=== PATIENT | female | born 1990 | race Caucasian/White ===

== ENCOUNTER 2022-07-31 17:58 | Emergency (ER) | payer OTHER ==
[2022-07-31 18:09] VITALS: BP 138/77; PULSE 84; RESP 16; TEMP 97.7; BMI 34.3
[2022-07-31] MEDS ORDERED: IBUPROFEN 600 MG TABLET (FP) PO ONE (18:33)
== END 2022-07-31 19:18 | disposition home or self-care (01) ==
LOC: JER 17:58
DX: G56.32 Lesion of radial nerve, left upper limb (principal)
CPT/HCPCS: 82962; 99283-25

== ENCOUNTER 2022-09-08 08:54 | Emergency (ER) | payer OTHER ==
[2022-09-08 08:58] VITALS: BP 124/79; PULSE 86; RESP 18; TEMP 97.7; BMI 35.2
== END 2022-09-08 09:48 | disposition home or self-care (01) ==
LOC: JERFT 08:54
DX: J00 Acute nasopharyngitis [common cold] (principal); R05.1 Acute cough; R09.81 Nasal congestion; Z20.822 Contact with and (suspected) exposure to COVID-19
CPT/HCPCS: 0241U-QW; 87651; 99283-25

== ENCOUNTER 2023-05-14 11:08 | Emergency (ER) | payer OTHER ==
[2023-05-14 11:44] VITALS: BP 124/70; PULSE 97; RESP 20; TEMP 97.7; BMI 35.2
[2023-05-14 12:30] LABS: THROAT:GRP A STREP NOT DETECTED (NOTDETECTED)
[2023-05-14] MEDS ORDERED: IBUPROFEN 600 MG TABLET (FP) PO ONE ×2 (12:30→12:31)
[2023-05-14] MEDS ORDERED: ALBUTEROL SO4 2.5/IPRATROPIUM 0.5 INH SOL 3 ML VIAL.NEB. NEB ONE ×2 (12:30→12:31)
== END 2023-05-14 13:22 | disposition home or self-care (01) ==
LOC: JERFT 11:08
PROC: 3E0F7GC Introduction of Other Therapeutic Substance into Respiratory Tract, Via Natural or Artificial Opening (ICD-10-PCS; principal; 2023-05-14)
DX: R05.9 Cough, unspecified (principal); R09.81 Nasal congestion; R06.02 Shortness of breath; J10.1 Influenza due to other identified influenza virus with other respiratory manifestations; Z20.822 Contact with and (suspected) exposure to COVID-19
CPT/HCPCS: 0241U-QW; 87651; 99284-25

== ENCOUNTER 2023-06-10 10:14 | Emergency (ER) | payer OTHER ==
[2023-06-10 10:23] VITALS: BP 110/55; PULSE 89; RESP 16; TEMP 99; BMI 37.8
[2023-06-10] MEDS ORDERED: ACETAMINOPHEN 325 MG TABLET (FP) ONE (10:55)
[2023-06-10] MEDS ORDERED: AMOX TR/POT CLAV 500MG/125MG TABLETS (FP) ONE (10:56)
[2023-06-10] MEDS: AMOXICILLIN 500 MG CAPSULE (FP) PO ONE (11:04)
[2023-06-10] MEDS: ACETAMINOPHEN 325 MG TABLET (FP) PO ONE (11:04)
[2023-06-10] MEDS ORDERED: IBUPROFEN 400 MG TABLET (FP) PO ONE (11:06)
[2023-06-10] MEDS: IBUPROFEN 400 MG TABLET (FP) PO ONE (11:07)
== END 2023-06-10 11:09 | disposition home or self-care (01) ==
LOC: FER 10:14
DX: R22.0 Localized swelling, mass and lump, head (principal); R51.9 Headache, unspecified; R68.84 Jaw pain; K08.89 Other specified disorders of teeth and supporting structures; H92.01 Otalgia, right ear
CPT/HCPCS: 99283-25

== ENCOUNTER 2023-10-06 13:18 | Emergency (ER) | payer SELFPAY ==
[2023-10-06 13:27] VITALS: BP 128/77; PULSE 72; RESP 18; TEMP 97.8; BMI 36.3
[2023-10-06] MEDS ORDERED: FAMOTIDINE 20 MG/50 ML IVPB 20 MG/50 ML MG IVPB ONE (14:01)
[2023-10-06] MEDS ORDERED: ONDANSETRON 4 MG/2 ML VIAL ONE (14:01)
[2023-10-06] MEDS: SODIUM CHLORIDE 0.9% 500 ML INFUS.BAG IV ONE ×2 (14:05→17:52)
[2023-10-06] MEDS: ONDANSETRON 4 MG/2 ML VIAL IVPUSH ONE (14:05)
[2023-10-06] MEDS: FAMOTIDINE 20 MG/50 ML IVPB 20 MG/50 ML MG IVPB ONE (14:05)
[2023-10-06] MEDS ORDERED: KETOROLAC TROMETHAMINE 30 MG/1 ML VIAL ONE (14:11)
[2023-10-06] MEDS: KETOROLAC TROMETHAMINE 30 MG/1 ML VIAL IVPUSH ONE (14:16)
[2023-10-06 14:22] LABS: BASO % 0.5 % (0-2.0); EOS % 0.2 % (0-4.5); HEMATOCRIT 42.4 % (32.4-45.2); HEMOGLOBIN 13.3 GM/dL (10.7-15.3); MCH 27.7 pg (25.7-33.7); MCHC 31.5 g/dl (32.0-36.0); MEAN CELL VOLUME 87.9 fl (80-96); MEAN PLT VOLUME 8.8 fl (7.5-11.1); MONO % 6.2 % (3.8-10.2); NEUT % 82.1 % (42.8-82.8); PLATELET COUNT 295 10^3/uL (134-434); RBC 4.82 M/mm3 (3.60-5.2); RDW 14.7 % (11.6-15.6); WHITE BLOOD COUNT 11.1 K/mm3 (4.0-10.0)
[2023-10-06 14:31] LABS: POTASSIUM 4.6 mmol/L (3.5-5.1)
[2023-10-06 14:33] LABS: CALCIUM 9.3 mg/dL (8.5-10.1)
[2023-10-06 14:34] LABS: ALBUMIN 3.5 g/dl (3.4-5.0)
[2023-10-06 14:37] LABS: CREATININE 0.6 mg/dL (0.55-1.3)
[2023-10-06 14:39] LABS: BILIRUBIN,TOTAL 0.4 mg/dL (0.2-1); TOT PROT 7.3 g/dl (6.4-8.2)
[2023-10-06] MEDS ORDERED: MORPHINE SULFATE 2 MG/ML SYRINGE ONE (14:54)
[2023-10-06] MEDS ORDERED: DICYCLOMINE HCL 10 MG CAPSULE ONE (14:55)
[2023-10-06] MEDS: DICYCLOMINE HCL 20 MG TABLET PO ONE (15:00)
[2023-10-06] MEDS: morphine CARPU-JECT 2 MG/1 ML DISP.SYRIN IVPUSH ONE (15:00)
[2023-10-06 17:51] LABS: EPI CELLS 21 /uL (0-25.1); HYALINE CASTS 15 /uL (0-3.1); PH,URINE 5.5 (5.0-8.0); URINE APPEARANCE TURBID; URINE BACTERIA 545 /uL (0-1359); URINE BILIRUBIN 1+ (NEGATIVE); URINE COLOR ORANGE; URINE GLUCOSE (UA) NEGATIVE (NEGATIVE); URINE KETONE TRACE (NEGATIVE); URINE LEUK ESTERASE 2+ (NEGATIVE); URINE NITRITE NEGATIVE (NEGATIVE); URINE PROTEIN 2+ (NEGATIVE); URINE RBC 7165 /uL (0-23.9); URINE UROBILINOGEN 0.2 mg/dL (0.2-1.0); URINE WBC 188 /uL (0-25.8)
== END 2023-10-06 19:27 | disposition home or self-care (01) ==
LOC: JER 13:18
PROC: 3E033GC Introduction of Other Therapeutic Substance into Peripheral Vein, Percutaneous Approach (ICD-10-PCS; principal; 2023-10-06)
PROC: 3E033GC Introduction of Other Therapeutic Substance into Peripheral Vein, Percutaneous Approach (ICD-10-PCS; 2023-10-06)
PROC: 3E0333Z Introduction of Anti-inflammatory into Peripheral Vein, Percutaneous Approach (ICD-10-PCS; 2023-10-06)
PROC: 3E033NZ Introduction of Analgesics, Hypnotics, Sedatives into Peripheral Vein, Percutaneous Approach (ICD-10-PCS; 2023-10-06)
DX: R10.30 Lower abdominal pain, unspecified (principal); R11.2 Nausea with vomiting, unspecified; R61 Generalized hyperhidrosis; R51.9 Headache, unspecified
CPT/HCPCS: 36415; 74177-TC; 76830-TC; 80053; 81003; 84703; 85025; 99285-25; Q9967

== ENCOUNTER 2023-11-18 12:50 | Emergency (ER) | payer OTHER ==
[2023-11-18 15:30] VITALS: BP 111/78; PULSE 83; RESP 16; TEMP 97.9; BMI 35.2
[2023-11-18 18:22] LABS: HIV INTERPRETATION NEGATIVE (NEGATIVE)
== END 2023-11-18 14:35 | disposition home or self-care (01) ==
LOC: FER 12:50
DX: S61.255A Open bite of left ring finger without damage to nail, initial encounter (principal); W54.0XXA Bitten by dog, initial encounter
CPT/HCPCS: 36415; 86803; 87389; 99283-25